=== PATIENT | female | born 2000 | race African-American/Black ===

== ENCOUNTER 2025-02-10 18:17 | Emergency (ER) | payer OTHER ==
[2025-02-10 18:40] VITALS: BP 117/83; PULSE 92; RESP 19; TEMP 97.8; BMI 49.3
[2025-02-10] MEDS ORDERED: IBUPROFEN 600 MG TABLET (FP) PO ONE (20:10)
[2025-02-10] MEDS ORDERED: ACETAMINOPHEN 325 MG TABLET (FP) ONE (20:10)
[2025-02-10] MEDS: IBUPROFEN 600 MG TABLET (FP) PO ONE (20:16)
[2025-02-10] MEDS: ACETAMINOPHEN 325 MG TABLET (FP) PO ONE (20:17)
[2025-02-11 15:51] LABS: HIV INTERPRETATION NEGATIVE (NEGATIVE)
[2025-02-11 15:55] LABS: HCV DIAGNOSTIC IN-HOUSE W/RFLX NON-REACTIVE (NONREACTIVE)
== END 2025-02-10 21:08 | disposition home or self-care (01) ==
LOC: JERFT 18:17
DX: R51.9 Headache, unspecified (principal); R68.84 Jaw pain; V89.2XXA Person injured in unspecified motor-vehicle accident, traffic, initial encounter
CPT/HCPCS: 36415; 86803; 87389; 99283-25